=== PATIENT | male | born 1970 | race Caucasian/White ===

== ENCOUNTER → 2021-07-29 | Outpatient (CLI) | payer OTHER ==
[~2021-07-29] MED LIST: B COMPLEX1 EACH PO; CLA PO; FISH OIL 1,0001 EAC9 PO; MAGNESIUM250 M1 PO; MULTI VITAMIN1 EACH PO; VITAMIN C500 M1 PO; VITAMIN D350 MC3 PO; ZINC50 M3 PO
[2021-07-29 11:56] LABS: HEMATOCRIT 44.9 % (42.0-52.0); HEMOGLOBIN 15.4 gm/dL (14.0-18.0); MCH 30.8 pg (26.0-34.0); MCHC 34.2 g/dL (28.0-37.0); RBC 4.99 mil/uL (4.50-6.00); RDW 13.6 % (10.5-14.5); WBC 7.6 thou/uL (4.0-11.0)
[2021-07-29 11:59] LABS: URINE BILIRUBIN NEGATIVE (Negative); URINE BLOOD TRACE (Negative); URINE CLARITY CLEAR; URINE COLOR YELLOW; URINE GLUCOSE-RANDOM* NEGATIVE (Negative); URINE KETONES NEGATIVE (Negative); URINE LEUKOCYTES-REFLEX NEGATIVE (Negative); URINE NITRITE-REFLEX NEGATIVE (Negative); URINE PROTEIN (DIPSTICK) NEGATIVE (Negative); URINE SPECIFIC GRAVITY <= 1.005 (1.005-1.035); URINE UROBILINOGEN 0.2 E.U./dl (0.2-1.0)
[2021-07-29 12:08] LABS: ALBUMIN 4.1 g/dL (3.4-5.0); INR 0.99; PROTIME 10.8 Seconds (10.5-12.1)
== END ==
LOC: PAC → EDBD → PAC 10:37
PROVIDERS: ATTEND Orthopaedic Surgery
DX: M17.11 Unilateral primary osteoarthritis, right knee (principal); M25.561 Pain in right knee

== ENCOUNTER 2021-08-11 06:57 | Day surgery (SDC) | payer OTHER ==
[~2021-08-11] VITALS: Ht 182.9 cm; Wt 135.2 kg
[2021-08-11 08:01] VITALS: BP 147/74
[2021-08-11 14:31] VITALS: BP 147/74
--- NOTE | 2021-08-16 09:39 | O ---
[facility] [place] [address] OPERATIVE REPORT Name: HAMILTON SKAGGS Room #: DEP [facility] [place] Tomy#: [id number] Admission: 08/11/21 Attend Phys: Stephen Paul MD Discharge: 08/11/21 Date of : 72 Report #: [id number] THIS REPORT FOR: cc: JERARDO - Family physician unknown FAM - Family physician unknown Stephen Paul MD ~ DATE OF SERVICE: 08/11/2021 PREOPERATIVE DIAGNOSIS: Right knee osteoarthritis. POSTOPERATIVE DIAGNOSIS: Right knee osteoarthritis. PROCEDURE: Right total knee arthroplasty using Navio robotic assistance. SURGEON: Stephen Paul MD. HEALTH DATA ADMINISTRATOR: Erika Hanson PA-C. INDICATION FOR HEALTH DATA ADMINISTRATOR: Throughout the case, extensive retraction, manipulation of the knee was required. This was afforded to me by my coding assistant. ANESTHESIA: LMA with adductor canal block. IMPLANTS: [employer]ink [employer] Nephew size 7 Oxinium Journey II BCS femur, size 6 tibia, size 35 patella and a 12 constrained polyethylene. TOURNIQUET TIME: 60 minutes. ESTIMATED BLOOD LOSS: 25 mL. COMPLICATIONS: None. SPECIMENS: None. CONDITION UPON LEAVING THE OR: Stable. INDICATIONS FOR PROCEDURE: The patient is a 50-year-old gentleman with right knee osteoarthritis. He had failed conservative measures for this and after discussion with him, he elected for right total knee arthroplasty. DESCRIPTION OF PROCEDURE: Risks, benefits, alternatives, complications were discussed in detail with the patient including but not limited to risk of anesthesia, risk of damage to nerves, arteries, blood vessels, risk for infection, bleeding, risk for continued knee pain, the need for reoperation. Informed consent was obtained from the patient. The right knee was appropriately marked in the preoperative holding area. Adductor canal block was [facility] [address] [place] [address] OPERATIVE REPORT Name: HAMILTON SKAGGS Room #: DEP [facility] [place] Tomy#: [id number] Admission: 08/11/21 Attend Phys: Stephen Paul MD Discharge: 08/11/21 Date of : 72 Report #: [id number] placed by anesthesia. He was brought to the operating room and placed in supine position on the operating room table. LMA anesthesia was induced without complication. Tourniquet was placed on the right thigh. Right lower extremity was prepped and draped in normal sterile fashion. Timeout was performed properly identifying the patient and procedure as well as the instrumentation and implants. All in the operating room were in agreement. Right lower extremity was exsanguinated and tourniquet inflated. Tourniquet time was 60 minutes. Standard midline approach to the knee was made with 10 blade through the skin. Dissection was taken down sharply to the fascia. Deep flaps were developed medially and laterally. Fresh 10 blade was used to make a medial parapatellar arthrotomy and the knee was inspected. There was severe tricompartmental osteoarthritis. ACL and PCL were removed sharply. Reference pins were placed in the femur and the tibia. The knee was digitally mapped using Assignment Editor robotic system. Intraoperative plan was made. We sized the size 7 femur, size 6 tibia and a 10 spacer. After acceptance of the intraoperative plan, the distal femoral cut was made with Navio bur. Distal femoral cutting block was pinned in place and chamfer cuts were made. Attention was turned to the tibia. Remainder of the menisci removed with Bovie cautery. Tibial resection guide was pinned in place using Navio for placement and tibial resection was made. Medial osteophyte was removed from the tibia. Flexion and extension gaps were checked and found to be tight medially in flexion and extension and limited medial release was performed using the pie crusting technique and this balanced the knee well. Tibia sized, found to be a size 6. Size 6 tibial trial was placed, pinned and punch. A size 7 femoral trial was placed and box cut was made. This was then trialed with a size 10 up to a size 12 polyethylene. Size 12 polyethylene demonstrated up to 10.5 mm of laxity laterally throughout range of motion of the knee with up to 2 mm medially. It was felt we can make up for this with a constrained implant. A 9 mm of bone was resected from the posterior surface of the patella and a size 35 patellar trial button was placed. Knee was taken through range of motion, found to be stable, found to have good patellar tracking. Trial components were removed. Bone ends were thoroughly irrigated with normal saline. A final size 6 tibia, size 7 Journey II BCS Oxinium femur and a size 35 patella were cemented in place using standard cementation techniques. While the cement cured, a periarticular injection consisting of morphine, ropivacaine, epinephrine, Toradol was placed around the knee joint capsule. After the cement cured, tourniquet was deflated. Hemostasis was obtained with Bovie cautery. A final size 12 constrained polyethylene was placed. Vancomycin 1 gram was placed deep in the joint. The fascia was closed with 0 Vicryl. Skin was closed with 2-0 Vicryl, skin staple and a BEVERLY dressing was applied. The patient tolerated this procedure well and went to recovery room under care of anesthesia postoperatively. <ELECTRONICALLY SIGNED> By: Stephen Paul MD 08/16/21 [id number] Stephen Paul MD /nt
== END 2021-08-11 14:40 | disposition home or self-care (01) ==
LOC: OR → EDBD → OR 06:57 → TBA 06:58 → OR 10:58
PROVIDERS: ATTEND Orthopaedic Surgery
DX: M17.11 Unilateral primary osteoarthritis, right knee (principal); M25.561 Pain in right knee; G47.30 Sleep apnea, unspecified; Z96.652 Presence of left artificial knee joint; Z98.890 Other specified postprocedural states; Z90.49 Acquired absence of other specified parts of digestive tract; Z79.899 Other long term (current) drug therapy; Z88.8 Allergy status to other drugs, medicaments and biological substances
CPT/HCPCS: 50010; 50101; 50415; 50954; 51130; 51225; 51320; 51412; 53000; 53078; 53365; 56527; 56528; 57095; 57103; 57110; 57127; 57180; 62110; 62900; 64042; 70005